=== PATIENT | male | born 1985 ===

== ENCOUNTER 2016-06-17 19:55 | Emergency (ER) | payer SELFPAY ==
[~2016-06-17] VITALS: Ht 182.9 cm; Wt 95.3 kg
--- NOTE | 2016-06-17 20:24 | Emergency Room Report ---
History of Present Illness General Chief Complaint: Medication Refill Source: EMS (Makenzie Mcgrath) Present Illness HPI 31-year-old male presents emergency department initially for medication refill, upon initial evaluation patient states that he takes Risperdal and has been out of his medication. He should also discuss his homelessness in addition to intermittently hearing voices. Patient reports previous psychiatric facility visits. Patient states he has not had his medication for several days and is unable to speculate approximately how many days. Patient denies any medical symptoms at this time. Denies cough, abdominal pain, nausea, vomiting, fevers, chills.Denies CP, Palpitations, LOC, AMS, dizziness, Changes in Vision, Sensation, paresthesias, or a sudden severe headache. Patient does not have any specific plans/ details of hurting himself or others. He does state that he has a hx of aggression, and does want to hurt people. Patient does not provide further details. (Makenzie Mcgrath) Allergies: Coded Allergies: No Known Allergies (Unverified , 06/17/16) Patient History Past Medical History: see triage record, psych hx Past Surgical History: none Pertinent Family History: none Reviewed Nursing Documentation: PMH: Agreed, PSxH: Agreed (Makenzie Mcgrath) Nursing Documentation-PMH History Of Psychiatric Problem: Yes - UNK (Makenzie Mcgrath) Review of Systems All Other Systems: negative except mentioned in HPI (Makenzie Mcgrath) Physical Exam Vital Signs Date Time Temp Pulse Resp B/P Pulse Ox O2 Delivery O2 Flow Rate FiO2 06/17/16 20:08 98.1 88 20 127/77 100 Room Air Sp02 EP Interpretation: reviewed, normal General Appearance: no apparent distress, alert, GCS 15, non-toxic Head: normocephalic, atraumatic Eyes: bilateral eye PERRL, bilateral eye normal inspection ENT: hearing grossly normal, normal pharynx, no angioedema, normal voice Neck: full range of motion, supple/symm/no masses Respiratory: chest non-tender, lungs clear, normal breath sounds, speaking full sentences Cardiovascular #1: regular rate, rhythm, no edema Gastrointestinal: normal bowel sounds, non tender, soft, no guarding, no rebound Rectal: deferred Genitourinary: normal inspection, no CVA tenderness Musculoskeletal: back normal, gait/station normal, normal range of motion, non- tender, no calf tenderness Neurologic: alert, oriented x3, responsive, motor strength/tone normal, sensory intact, speech normal Psychiatric: judgement/insight normal, memory normal, mood/affect normal, other - PT. has innapropriate giggling, slow to answer questions , and is easily distracted. PT. also keeps changing his CC Skin: normal color, no rash, warm/dry, well hydrated Lymphatic: no adenopathy (Makenzie Mcgrath) Medical Decision Making PA Attestation Dr. canseco is my supervising Physician whom patient management has been discussed with. (Makenzie Mcgrath) Diagnostic Impression: Primary Impression: Encounter for medication refill Additional Impressions: PCP (phencyclidine) abuse Methamphetamine abuse Marijuana abuse Malingerer ER Course Pt. presents to the ED c/o 31-year-old male presents emergency department initially for medication refill, upon initial evaluation patient states that he takes Risperdal and has been out of his medication - Second evaluation pt. reports vague ideas of hurting others, and speculates about himself. pt. does not have a plan, at this point pt. does not have a means. Pt. also states that he is homeless, and had previous aggression issues. Pt is hyperactive, and has a very anxious and restless affect. Ddx considered but are not limited to OD, SI/HI, psychosis, UTI, intoxication, homelessness. Vital signs: are WNL, pt. is afebrile H&PE are most consistent with behavioral/mental health issue ORDERS: none required at this time, the diagnosis is clinical -UA: WNL Unremarkable -UDS: Positive for PCP, THC, Amphetamines. -Psych panel ordered: see results attached : Pending - no acute intoxication. ED INTERVENTIONS: - 1mg Risperdal - DISPOSITION: - Observation in ED until Sober, then will re-assess. Labs Test 06/17/16 21:10 White Blood Count 8.6 K/UL (4.8-10.8) Red Blood Count 4.39 M/UL (4.70-6.10) Hemoglobin 13.7 G/DL (14.2-18.0) Hematocrit 42.3 % (42.0-52.0) Mean Corpuscular Volume 96 FL (80-99) Mean Corpuscular Hemoglobin 31.3 PG (27.0-31.0) Mean Corpuscular Hemoglobin Concent 32.4 G/DL (32.0-36.0) Red Cell Distribution Width 11.6 % (11.6-14.8) Platelet Count 363 K/UL (150-450) Mean Platelet Volume 7.7 FL (6.5-10.1) Neutrophils (%) (Auto) 65.3 % (45.0-75.0) Lymphocytes (%) (Auto) 22.7 % (20.0-45.0) Monocytes (%) (Auto) 8.0 % (1.0-10.0) Eosinophils (%) (Auto) 2.2 % (0.0-3.0) Basophils (%) (Auto) 1.8 % (0.0-2.0) Sodium Level 140 mEQ/L (135-145) Potassium Level 3.8 mEQ/L (3.4-4.9) Chloride Level 100 mEQ/L (98-107) Carbon Dioxide Level 26 mEQ/L (20-30) Anion Gap 14 (5-15) Blood Urea Nitrogen 11 mg/dL (7-23) Creatinine 1.1 mg/dL (0.7-1.2) Estimat Glomerular Filtration Rate > 60 mL/min (>60) Glucose Level 102 mg/dL (74-106) Calcium Level 9.2 mg/dL (8.6-10.2) Total Bilirubin 0.3 mg/dL (0.0-1.2) Aspartate Amino Transf (AST/SGOT) 42 U/L (5-40) Alanine Aminotransferase (ALT/SGPT) 38 U/L (3-41) Alkaline Phosphatase 148 U/L (40-129) Total Protein 7.8 g/dL (6.6-8.7) Albumin 4.1 g/dL (3.5-5.2) Globulin 3.7 g/dL Albumin/Globulin Ratio 1.1 (1.0-2.7) Salicylates Level < 1 mg/dL (10-30) Urine Opiates Screen Negative (NEGATIVE) Acetaminophen Level < 10 ug/mL (10-30) Urine Barbiturates Screen Negative (NEGATIVE) Phencyclidine (PCP) Screen Positive (NEGATIVE) Urine Amphetamines Screen Positive (NEGATIVE) Urine Benzodiazepines Screen Negative (NEGATIVE) Urine Cocaine Screen Negative (NEGATIVE) Urine Marijuana (THC) Screen Positive (NEGATIVE) Serum Alcohol < 10 mg/dL (Makenzie Mcgrath) ER Course Received signout from KENN Mcgrath Patient sober Alert and oriented Utox + for PCP, meth, MJ Tylenol and ASA levels negative Rest of labs unremarkable Patient has been sleeping in chair in [employer] for hours without complaint Denies SI, HI, AVH Has made specific reference to "being on " and "requesting a bed" and stating that "earlier staff member said I could stay here until Sunday." Likely degree of malingering for correction, food. Rx Risperdone provided as per patient's initial request DC home (KING SOLER M.D.) Last Vital Signs Date Time Temp Pulse Resp B/P Pulse Ox O2 Delivery O2 Flow Rate FiO2 06/17/16 20:08 98.1 88 20 127/77 100 Room Air (Makenzie Mcgrath) Status: improved (KING SOLER M.D.) Disposition: HOME, SELF-CARE Signed Out To: Dr. Soler (Makenzie Mcgrath) Scripts Risperidone* (RISPERDAL*) 1 Mg Tablet 1 MG PO DAILY for 14 Days, #14 TAB Prov: Makenzie Mcgrath 06/17/16 Patient Instructions: Medicine Refill at the Emergency Department Additional Instructions: Take medications as directed. Follow up with PCP in 3-5 days Return sooner to ED if new symptoms occur, or current symptoms become worse. *!* Review provided list of free or reduced cost Psychiatric Urgent care for follow up and medication management. also review provided list of transitional housing. *!* Makenzie Mcgrath Jun 17, 2016 20:24 KING SOLER M.D. Jun 17, 2016 23:42
[2016-06-17] MEDS ORDERED: RISPERDAL1 MG PO (20:27)
[2016-06-17 20:47] VITALS: BP 127/77
[2016-06-17 21:37] LABS: BASOPHILS % (AUTO) 1.8 % (0.0-2.0); EOSINOPHILS % (AUTO) 2.2 % (0.0-3.0); LYMPHOCYTES % (AUTO) 22.7 % (20.0-45.0); MEAN CORPUSCULAR HEMOGLOBIN 31.3 PG (27.0-31.0); MEAN CORPUSCULAR HGB CONC 32.4 G/DL (32.0-36.0); MEAN CORPUSCULAR VOLUME 96 FL (80-99); MEAN PLATELET VOLUME 7.7 FL (6.5-10.1); NEUTROPHILS % (AUTO) 65.3 % (45.0-75.0); PLATELET COUNT 363 K/UL (150-450); RED BLOOD COUNT 4.39 M/UL (4.70-6.10); RED CELL DISTRIBUTION WIDTH 11.6 % (11.6-14.8); WHITE BLOOD COUNT 8.6 K/UL (4.8-10.8)
[2016-06-17 22:07] LABS: ACETAMINOPHEN < 10 ug/mL (10-30); ALANINE AMINOTRANSFERASE 38 U/L (3-41); ALBUMIN/GLOBULIN RATIO 1.1 (1.0-2.7); ALCOHOL < 10 mg/dL; ANION GAP 14 (5-15); ASPARTATE AMINO TRANSFERASE 42 U/L (5-40); CALCIUM 9.2 mg/dL (8.6-10.2); CARBON DIOXIDE 26 mEQ/L (20-30); CHLORIDE 100 mEQ/L (98-107); CREATININE 1.1 mg/dL (0.7-1.2); GLOMERULAR FILTRATION RATE > 60 mL/min (>60); HEMOLYSIS 1; POTASSIUM 3.8 mEQ/L (3.4-4.9); SODIUM 140 mEQ/L (135-145); TOTAL PROTEIN 7.8 g/dL (6.6-8.7)
[2016-06-18 02:52] VITALS: BP 1/1
== END 2016-06-17 23:50 | disposition home or self-care (01) ==
LOC: EDBD 19:55 → EMR 21:30
DX: Z76.0 Encounter for issue of repeat prescription (principal); F16.10 Hallucinogen abuse, uncomplicated; F12.10 Cannabis abuse, uncomplicated; F15.10 Other stimulant abuse, uncomplicated; Z76.5 Malingerer [conscious simulation]; Z59.0 Homelessness
CPT/HCPCS: 36415; 80053; 80300; 85025; 99284; G0480; 80329